=== PATIENT | female | born 1950 | race Caucasian/White ===

== ENCOUNTER 2019-07-11 04:53 | Inpatient (IN) ==
[2019-07-05 11:46] LABS: Appearance,Urine CLEAR; Bilirubin,Urine NEG (NEG); Color,Urine COLORLESS; Culture Indicated,Urine NO; Glucose,Urine (UA) NEGATIVE (NEG); Ketones,Urine NEG (NEG); Leukocyte Esterase,Urine NEG /uL (NEG); Nitrate,Urine NEG (NEG); Protein,Urine NEG (NEG); Specific Gravity,Urine 1.005 (1.000-1.035); Urine Blood NEG mg/dL (<0.03); Urobilinogen,Urine NEG (NEG)
[2019-07-05 12:00] LABS: INR 0.9 (0.9-1.1); Prothrombin Time 12.1 sec (11.9-14.5)
[2019-07-05 12:28] LABS: ALT/SGPT 60 U/l (0-40); AST/SGOT 32 U/l (0-37); Albumin 4.3 gm/dL (3.2-5.2); Albumin/Globulin Ratio 1.6 (1.0-2.3); Alkaline Phosphatase 75 U/L (39-117); Bilirubin,Total 0.3 mg/dL (0.0-1.0); Blood Urea Nitrogen 10 mg/dl (8-23); Calcium 9.6 mg/dl (8.6-10.4); Carbon Dioxide 25 mmol/L (22-30); Chloride 101 mmol/L (96-108); Globulin 2.7 gm/dL (2.2-3.7); Glomerular Filtration Rate 100; Glucose 89 mg/dL (70-105)
[2019-07-05 12:57] LABS: Basophils # (Auto) 0.06 K/mcL (0.00-0.30); Basophils % (Auto) 0.8 % (0.0-2.0); Eosinophils # (Auto) 0.17 K/mcL (0.00-0.70); Eosinophils % (Auto) 2.2 % (0.0-7.0); Granulocytes % (Auto) 66.8 % (38.0-78.0); Hematocrit 43.4 % (34.1-44.9); Hemoglobin 14.2 g/dL (11.2-15.7); Lymphocytes # (Auto) 1.67 K/mcL (1.50-4.80); Lymphocytes % (Auto) 21.7 % (15.5-49.0); Mean Cell Volume 88.4 fL (80.0-100.0); Mean Corpuscular HGB Conc 32.7 g/dL (31.0-36.0); Mean Platelet Volume 10.8 fL (7.4-10.4); Monocytes # (Auto) 0.65 K/mcL (0.10-0.90); Monocytes % (Auto) 8.5 % (1.0-12.0); Platelet Count 271 K/mcL (140-440); RBC 4.91 M/mcL (3.59-5.38); WBC 7.7 K/mcL (4.50-11.00)
[2019-07-11] MEDS ORDERED: IPRATROPIUM/ALBUTEROL 3 ML AMPUL.NEB NEB PRN ×3 (05:03→15:28)
[2019-07-11] MEDS ORDERED: ceFAZolin 2 GM in DEXTROSE 5% IN WATER 50 ML IV SCH (06:00)
[2019-07-11] MEDS ORDERED: ePHEDrine 50 MG/ML AMPUL IV ONE (08:46)
[2019-07-11] MEDS ORDERED: methylPREDNISolone SOD SUCC 125 MG/2 ML VIAL IV ONE ×2 (08:46→23:41)
[2019-07-11] MEDS ORDERED: PROPOFOL 200 MG/20 ML VIAL IV ONE (08:46)
[2019-07-11] MEDS ORDERED: TRANEXAMIC ACID 1,000 MG/10 ML VIAL IV ONE (08:46)
[2019-07-11] MEDS ORDERED: SUCCINYLCHOLINE 20 MG/ML ML IV ONE (08:46)
[2019-07-11] MEDS ORDERED: fentaNYL 250 MCG/5 ML VIAL IV ONE (08:46)
[2019-07-11] MEDS ORDERED: KETAMINE 100 MG/ML ML IV ONE (08:46)
[2019-07-11] MEDS ORDERED: ONDANSETRON 4 MG/2 ML VIAL IV ONE (08:46)
[2019-07-11] MEDS ORDERED: LIDOCAINE HCL/PF 100 MG/5 ML SYRINGE IV ONE (08:46)
[2019-07-11] MEDS ORDERED: GELATIN SPONGE,ABSORBABLE 1 EACH SPONGE TOPICAL ONE (11:27)
[2019-07-11] MEDS ORDERED: GELATIN SPONGE,ABSORBABLE 1 GM POWDER TOPICAL ONE (11:28)
[2019-07-11] MEDS ORDERED: THROMBIN (BOVINE) 5,000 UNIT VIAL TOPICAL ONE (11:30)
[2019-07-11] MEDS ORDERED: HYDROmorphone 2 MG/ML VIAL IV PRN ×2 (14:26→23:44)
[2019-07-11] MEDS ORDERED: diphenhydrAMINE 50 MG/ML VIAL IV PRN (14:26)
[2019-07-11] MEDS ORDERED: BENZOCAINE/MENTHOL 1 LOZENGE PO PRN ×2 (14:26→14:46)
[2019-07-11] MEDS ORDERED: PROMETHAZINE 25 MG/ML VIAL IV PRN ×2 (14:26→23:21)
[2019-07-11] MEDS ORDERED: FLUMAZENIL 0.1 MG/ML ML IV PRN (14:26)
[2019-07-11] MEDS ORDERED: ONDANSETRON 4 MG/2 ML VIAL IV PRN ×2 (14:26→22:27)
[2019-07-11] MEDS ORDERED: ACETAMINOPHEN 1,000 MG/100 ML BOTTLE IV ONE (14:26)
[2019-07-11] MEDS ORDERED: NALOXONE HCL 0.4 MG/ML VIAL IV PRN (14:26)
[2019-07-11] MEDS ORDERED: MEPERIDINE 25 MG/ML SYRINGE IV PRN (14:26)
[2019-07-11] MEDS ORDERED: LACTATED RINGERS 250 ML IV PRN (14:26)
[2019-07-11] MEDS ORDERED: LACTATED RINGERS 1,000 ML IV SCH ×2 (14:30→15:00)
[2019-07-11] MEDS ORDERED: VANCOMYCIN 1 GM VIAL TOPICAL ONE (14:30)
[2019-07-11] MEDS ORDERED: VANCOMYCIN 1 GM VIAL TOPICAL SCH (14:30)
--- NOTE | 2019-07-11 14:36 | XRay Report ---
HISTORY: FINDINGS: IMPRESSION: 1.7 minutes of fluoroscopy time was used. Interpreted and Authenticated by: Luiz Henry 07/11/19
[2019-07-11] MEDS ORDERED: BUPIVACAINE 0.25% 50 ML VIAL IJ ONE (14:39)
[2019-07-11] MEDS ORDERED: GUM MASTIC/STORAX/MSAL/ALCOHOL 1 DOSE DROPERETTE TOPICAL ONE (14:43)
--- NOTE | 2019-07-11 14:45 | Brief Operative Note ---
Date of procedure: 07/11/19 Pre-op diagnosis: stenosis with instability Post-op diagnosis: same Procedure: decompression and fusion Grafts/Implants: Yes (nuvasive) Anesthesia: GETA Complications: none Surgeon: Jim Montelongo Electrical Assembler: French De Los Santos Estimated blood loss (cc): 500 Specimens Removed/Pathology: none sent Condition: stable Disposition: PACU
[2019-07-11] MEDS ORDERED: HYDROmorphone PCA 30 MG/30 ML PCA.VIAL IV PRN (14:54)
--- NOTE | 2019-07-11 15:24 | Internal Medicine Consult Note ---
Medical - CN: [facility] - Data of Consult Consult date: 07/11/19 Requesting physician: Jim Montelongo Primary Care Provider: Butch Quinn - Consult Narrative Reason for consult: bronchspasm History of present illness: Ms. Watkins is a 69 year old F Who presents for elective surgical repair of lumbar spine with decompression and fusion. During the early period of anesthesia she had bronchospasms and Silvia was given Solu-Medrol. Postoperatively she is stable and saturating well on oxygen mask in PACU. There is reported history of COPD per old charts but she is not on any inhalers. Patient is currently sedated from anesthesia and unable to gather review of systems. 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) Multinodular goiter (Chronic) Syncope (Chronic) History of cardiac monitoring (Chronic) Bone spur of foot (Chronic) Osteopenia (Chronic) Stomach ulcer (Chronic) Hyperlipidemia (Chronic) Acid reflux (Chronic) Abdominal pain (Resolved) Arthritis (Resolved) Asthma (Resolved) Back problem (Resolved) Borderline blood pressure (Resolved) COPD (chronic obstructive pulmonary disease) (Resolved) Cough (Resolved) Dizziness (Resolved) Flushing (Resolved) Goiter (Resolved) Hole in the ear drum (Resolved) Hypotension (Resolved) Influenza A (Resolved) Irritable bowel (Resolved) Joint pain (Resolved) Lightheadedness (Resolved) Muscle pain (Resolved) Skin cancer (Resolved) Vision changes (Resolved) Past Surgical History (Last Reviewed 06/13/19 @ 13:46 by Butch Quinn DO) S/P cataract extraction and insertion of intraocular lens (Acute) H/O colonoscopy (Chronic) H/O shoulder surgery (Chronic) H/O tubal ligation (Chronic) H/O: (Chronic) H/O: hysterectomy (Chronic) History of back surgery (Chronic) History of bilateral salpingo-oophorectomy (Chronic) History of breast biopsy (Chronic) History of esophagogastroduodenoscopy (Chronic 06/16/06) History of implanted electronic device (Chronic 12/13/14) History of tonsillectomy and adenoidectomy (Chronic) Hx of appendectomy (Chronic) S/P herniorrhaphy (Chronic) Status post surgery (Chronic) H/O lumpectomy (Inactive) H/O oophorectomy (Inactive) Family History (Last Reviewed 06/13/19 @ 13:46 by Butch Quinn DO) Mother Arthritis Hypertension, essential Heart trouble Uterine cancer CAD (coronary artery disease) Sister Hypertension, essential Stroke Family/Other Hypertension, essential Brother MVA (motor vehicle accident) Asthma Father CAD (coronary artery disease) Grandmother Breast cancer Social History (Last Updated 06/24/19 @ 14:03 by Butch Quinn DO) Per notes patient does not smoke and drinks alcohol on holidays special occasions Unaware functional status currently. Medical - CN: Meds Home Medications Medication Instructions Recorded Confirmed Type omeprazole 40 mg capsule,delayed 40 mg PO QDAY #90 cap 08/31/17 07/11/19 Rx release meclizine 25 mg tablet 25 mg PO BID-TID PRN #30 tab 10/25/18 07/11/19 Rx diphenhydrAMINE [Benadryl] 25 mg PO DAILYP PRN 12/06/18 07/11/19 History losartan 50 mg tablet 50 mg PO QDAY 12/13/18 07/11/19 History Calcium Carb/Mag Oxide/Zinc Ox 1 cap PO DAILY 07/05/19 07/11/19 History [Piwhtbd-Kwvoqpzcs-Kghu Caplet] Ferrous Sulfate [facility] 07/05/19 07/11/19 History Iodine [Kelp] 150 mcg PO DAILY 07/05/19 07/11/19 History Docusate Sodium [Stool Softener] 100 mg PO 07/11/19 History Allergies Allergy/AdvReac Type Severity Reaction Status Date / Time hydrochlorothiazide Allergy Severe Difficulty Verified 07/11/19 05:17 Breathing ezetimibe [From Vytorin] Allergy Intermediate Weakness Verified 07/11/19 06:05 adhesive tape AdvReac Intermediate Big Sores Verified 07/05/19 10:08 Corticosteroids AdvReac Intermediate Weakness Verified 07/11/19 06:09 (Glucocorticoids) simvastatin [From Vytorin] AdvReac Intermediate Weakness Verified 07/11/19 06:05 hydrocodone AdvReac Mild Vomiting Verified 07/05/19 10:08 ondansetron AdvReac Mild Irritable Verified 07/05/19 10:08 [From Zofran (as hydrochloride)] Medical - CN: Exam - Constitutional Vitals: Temp Pulse Resp BP Pulse Ox 98.4 F 62 16 150/92 96 07/11/19 05:08 07/11/19 05:08 07/11/19 05:08 07/11/19 05:08 07/11/19 05:08 Exam: General: Sedated from anesthesia post surgery, No acute Distress, obese Eyes/N/T: PERRL Head/Neck: neck supple, normocephalic atraumatic CV: RRR, No murmurs, normal s1/s2 Pulm: mild b/l wheez, no rales Abd: soft, nontender, +BS x4 Ext: no clubbing/cyanosis/edema Neuro: Sedated from anesthesia, PERRL Skin: warm/dry Medical - CN: Result - Labs CBC & Chem 7: 07/05/19 10:40 07/05/19 10:40 Medical - CN: A/P - Narrative A/P Narrative: A: *Status post lumbar decompression fusion (07/11): *Bronchospasms preoperatively (h/o COPD on charts but not on any IH's): *?h/o COPD: but not on any IH's *Obesity: *KIRSTEN: *GERD: *HTN: on Losartan P: -prn nebs -supp o2 if needed -Corticosteroids if needed -Continuous pulse ox 24 hours -cxr -cont angela ppi -ppx: per surgery, will have at least SCD
[2019-07-11] MEDS ORDERED: hydrALAZINE 20 MG/ML VIAL IV PRN (15:28)
[2019-07-11] MEDS: fentaNYL 100 MCG/2 ML VIAL IV PRN ×2 (16:05→16:07)
--- NOTE | 2019-07-11 16:15 | XRay Report ---
HISTORY: Bronchospasm FINDINGS: Lung volumes are small due to poor inspiration. There are prominent increased interstitial lung markings bilaterally. This may be inflammation or pulmonary vascular congestion, accentuated by the poor inspiration. The heart is mildly enlarged but magnified by portable supine technique. No pleural effusion is seen. IMPRESSION: Interstitial inflammation versus pulmonary vascular congestion in both lungs Interpreted and Authenticated by: Luiz Henry 07/11/19
[2019-07-11] MEDS: HYDROmorphone 2 MG/ML VIAL IV PRN ×4 (16:54→22:15)
[2019-07-11] MEDS: ceFAZolin 1 GM VIAL IV SCH (16:55)
[2019-07-11] MEDS ORDERED: FUROSEMIDE 40 MG/4 ML VIAL IV ONE (17:09)
[2019-07-11] MEDS: 0.9 % SODIUM CHLORIDE 10 ML SYRINGE IV SCH (18:12)
[2019-07-11] MEDS ORDERED: ONDANSETRON 4 MG ODT TABLET SL PRN (22:27)
[2019-07-11] MEDS ORDERED: ONDANSETRON 4 MG/2 ML VIAL ONE (22:31)
[2019-07-11] MEDS ORDERED: 0.9 % SODIUM CHLORIDE 1,000 ML IV SCH (23:15)
[2019-07-11] MEDS ORDERED: PROCHLORPERAZINE 10 MG/2 ML VIAL IV PRN (23:21)
[2019-07-11] MEDS ORDERED: FUROSEMIDE 20 MG/2 ML VIAL IV ONE ×2 (23:35→23:36)
[2019-07-11] MEDS ORDERED: LORazepam 2 MG/ML VIAL IV PRN (23:41)
[2019-07-12] MEDS ORDERED: NALOXONE HCL 0.4 MG/ML VIAL IV ONE (00:15)
[2019-07-12] MEDS ORDERED: NALOXONE HCL 0.4 MG/ML VIAL ONE (00:19)
[2019-07-12 00:32] LABS: ALT/SGPT 51 U/l (0-40); AST/SGOT 28 U/l (0-37); Albumin 3.8 gm/dL (3.2-5.2); Albumin/Globulin Ratio 1.7 (1.0-2.3); Alkaline Phosphatase 66 U/L (39-117); Bilirubin,Total 0.2 mg/dL (0.0-1.0); Blood Urea Nitrogen 11 mg/dl (8-23); Calcium 8.5 mg/dl (8.6-10.4); Carbon Dioxide 23 mmol/L (22-30); Chloride 97 mmol/L (96-108); Globulin 2.2 gm/dL (2.2-3.7); Glomerular Filtration Rate 90; Glucose 153 mg/dL (70-105)
[2019-07-12] MEDS: ceFAZolin 1 GM VIAL IV SCH ×3 (01:06→15:37)
[2019-07-12 01:14] LABS: Basophils # (Auto) 0.02 K/mcL (0.00-0.30); Basophils % (Auto) 0.1 % (0.0-2.0); Eosinophils # (Auto) 0.18 K/mcL (0.00-0.70); Eosinophils % (Auto) 1.3 % (0.0-7.0); Granulocytes % (Auto) 84.1 % (38.0-78.0); Hematocrit 35.1 % (34.1-44.9); Hemoglobin 11.8 g/dL (11.2-15.7); Lymphocytes # (Auto) 0.95 K/mcL (1.50-4.80); Mean Cell Volume 89.1 fL (80.0-100.0); Mean Corpuscular HGB Conc 33.6 g/dL (31.0-36.0); Mean Platelet Volume 10.4 fL (7.4-10.4); Monocytes # (Auto) 1.02 K/mcL (0.10-0.90); Monocytes % (Auto) 7.5 % (1.0-12.0); Platelet Count 268 K/mcL (140-440); RBC 3.94 M/mcL (3.59-5.38); Red Cell Distribution Width 13.2 % (11.5-14.5); WBC 13.6 K/mcL (4.50-11.00)
[2019-07-12] MEDS: 0.9 % SODIUM CHLORIDE 10 ML SYRINGE IV SCH ×4 (01:35→16:34)
[2019-07-12] MEDS ORDERED: ACETAMINOPHEN 1,000 MG/100 ML BOTTLE IV ONE ×2 (05:23→05:30)
--- NOTE | 2019-07-12 07:38 | Internal Med Progress Note ---
Medical - PN: Subj Patient information: Note initiated : 07/12/19 at 7:35 am Service Date, if different from initiated Date: [] Patient: Raya Watkins a 69 y/o F admitted on 07/11/19 for L3-L4 XLIF w/ Posterior Instrumentation, Osteotomy. Chief Complaint: [] Interval history: Ms. Watkins is a 69 year old F Who presents for elective surgical repair of lumbar spine with decompression and fusion. During the early period of anesthesia she had bronchospasms and Silvia was given Solu-Medrol. Postoperatively she is stable and saturating well on oxygen mask in PACU. There is reported history of COPD per old charts but she is not on any inhalers. 07/12 Patient did desat on 4 L oxygen mask late last night this appeared to be related to the Dilaudid she seems to be pretty sensitive to it as well as little bit of volume overload. She put out good diuresis with Lasix. And we adjusted her pain medications. Patient's breathing well this morning. Denies any coughing or shortness of breath. Review of Systems: denies headache/fever/chills/nausea/vomiting/chest or abdominal pain/cough/dyspnea/diarrhea. Otherwise see above. - Constitutional Vitals: Vital Signs Temp Pulse Resp BP Pulse Ox 97.7 F 76 12 121/72 94 07/12/19 03:32 07/12/19 03:32 07/12/19 03:32 07/12/19 03:32 07/12/19 07:27 Period Temp Pulse Resp BP Sys/Koo Pulse Ox Last 24 Hr 97.4 F-99.5 F 67-79 12-22 111-147/62-84 89-100 Intake and Output 07/11/19 07/12/19 07/12/19 21:59 05:59 13:59 Intake Total 3350 41 100 Output Total 2150 830 Balance 1200 -789 100 Weight 85.049 kg Intake & Output: Intake & Output 07/11/19 07/12/19 07/12/19 21:59 05:59 13:59 Intake Total 3350 41 100 Output Total 2150 830 Balance 1200 -789 100 Weight 85.049 kg Intake: IV 100 41 100 Sodium Chloride 0.9% 1,000 ml @ 41 KVO IV .Q0M [facility] Rx#:[id number] OFIRMEV 1,000 mg In 100 ml @ 0 100 mls/hr IV .K-MED ONE Rx#: [id number] IV - Manual Only 3250 Output: Drainage 75 Lower Back 75 Drainage 5 Lower Back 5 Urine Catheter Amount 1650 750 Estimated Blood Loss 500 Other: Urine Appearance Clear Clear Uretheral (Stark) Clear Urine Color Pale Bright Yellow Uretheral (Stark) Pale Urine Odor Normal Exam: General: awake, No acute Distress, obese Eyes/N/T: EOMI Head/Neck: neck supple, normocephalic atraumatic CV: RRR, No murmurs, normal s1/s2 Pulm: no rales or wheezing Abd: soft, nontender, +BS x4 Ext: no clubbing/cyanosis, trace b/l LEedema Neuro: alert and awake Skin: warm/dry Medical - PN: Obj Da - Labs CBC & Chem 7: 07/12/19 00:35 07/11/19 23:25 Labs: Abnormal Lab Results 07/12/19 07/11/19 00:35 23:25 WBC 13.6 H Gran % 84.1 H Lymph % (Auto) 7.0 L Gran # 11.39 H Lymph # (Auto) 0.95 L [place] # (Auto) 1.02 H Glucose 153 H Calcium 8.5 L ALT 51 H Meds: Medications Acetaminophen (Tylenol) 1,000 mg PO Q6HP PRN; Protocol PRN Reason: Per Pain Protocol/Fever > 101 Albuterol/Ipratropium (Duoneb) 3 ml NEB Q4HP PRN PRN Reason: Shortness Of Breath Cefazolin Sodium (Ancef) 1 gm IV Q8H [facility]; Protocol Last Admin: 07/12/19 01:06 Dose: 1 gm Documented by: Hydralazine HCl (Apresoline) 0 mg IV Q2HP PRN PRN Reason: Hypertension Hydromorphone HCl (Dilaudid) 2 mg PO Q4HP PRN; Protocol PRN Reason: Per Pain Protocol Hydromorphone HCl (Dilaudid) 0 mg IV Q2HP PRN; Protocol PRN Reason: Per Pain Protocol Sodium Chloride (Sodium Chloride 0.9%) 1,000 mls @ 0 mls/hr IV .Q0M [facility] Last Infusion: 07/12/19 02:30 Dose: Infused Documented by: Lorazepam (Ativan) 0.5 mg IV Q4-6HP PRN PRN Reason: ANXIETY/SEDATION Ondansetron HCl (Zofran) 4 mg IV Q4HP PRN PRN Reason: Nausea And Vomiting Ondansetron HCl (Zofran Odt) 4 mg SL Q4HP PRN PRN Reason: Nausea And Vomiting Pantoprazole Sodium (Protonix) 40 mg PO QAMAC ANGELIQUE Pneumococcal Polyvalent Vaccine (Pneumovax 23) 0.5 ml IM .ONCE ONE Stop: 07/12/19 10:01 Prochlorperazine (Compazine) 5 mg IV Q4-6HP PRN PRN Reason: Nausea And Vomiting Last Admin: 07/12/19 00:05 Dose: 5 mg Documented by: Promethazine HCl (Phenergan) 25 mg IV Q4-6HP PRN PRN Reason: Nausea And Vomiting Sodium Chloride (Saline Flush) 10 ml IV Q6 ANGELIQUE Last Admin: 07/12/19 01:35 Dose: Not Given Documented by: Throat Lozenges (Cepacol) 1 lozenge PO PRN PRN PRN Reason: Sore Throat Medical - PN: A/P - Time Spent With Patient Total time spent is greater than 50% in coordination of care (as documented) at patient's floor/unit and/or counseling patient: - Narrative A/P Narrative: A: *Status post lumbar decompression fusion (07/11): *Bronchospasms Intraoperatively (h/o COPD on charts but not on any IH's): *leukocytosis from likely intraop steroids: *Volume Overload: resolved *h/o COPD: but does not tolerate IH's *Obesity: *KIRSTEN: *GERD: *HTN: on Losartan P: -prn nebs if pt able to tolerate and we can clarify what exactly she did not tolerate in past -supp o2 wean off -Corticosteroids if needed -Continuous pulse -s/p IV diuresis -cxr -cont home ppi -ppx: per surgery, will have at least SCD Medical - PN: Qual - VTE Deep Vein Thrombosis/Pulmonary Embolism Present on Admission: No
--- NOTE | 2019-07-12 07:41 | Orthopedic Progress Note ---
Subjective Patient information: Note initiated : 07/12/19 at 7:39 am Service Date, if different from initiated Date: [] Patient: Raya Watkins 69 y/o F admitted on 07/11/19 for L3-L4 XLIF w/ Posterior Instrumentation, Osteotomy. Chief Complaint: [] does have some R thigh pain difficulty with nausea over night Objective Vital signs: Vital Signs Temp Pulse Resp BP BP Pulse Ox 07/12/19 07:27 94 07/12/19 07:26 94 07/12/19 03:32 97.7 F 76 12 121/72 91 07/12/19 01:43 68 12 121/78 94 07/12/19 01:29 69 12 111/73 95 07/12/19 01:13 73 12 126/75 90 07/12/19 00:58 67 12 112/72 97 07/12/19 00:44 72 122/75 96 07/12/19 00:29 77 120/78 92 07/11/19 19:35 97.4 F 77 12 111/72 95 07/11/19 18:35 75 123/78 90 07/11/19 18:06 76 131/76 90 07/11/19 17:36 77 138/80 92 07/11/19 17:21 77 127/81 91 07/11/19 17:06 77 145/84 89 L 07/11/19 17:00 91 07/11/19 16:51 75 129/82 89 L 07/11/19 16:20 98.3 F 77 14 147/83 94 07/11/19 16:15 97.8 F 79 16 127/76 93 07/11/19 16:00 98.2 F 76 22 139/78 91 07/11/19 15:45 97.7 F 75 19 143/79 95 07/11/19 15:30 75 15 129/80 89 L 07/11/19 15:25 97.9 F 73 16 126/70 99 07/11/19 15:20 73 17 128/77 93 07/11/19 15:15 71 18 118/72 100 07/11/19 15:10 70 17 117/67 97 07/11/19 15:07 99.5 F H 75 20 123/62 98 Intake and Output 07/11/19 07/12/19 07/12/19 21:59 05:59 13:59 Intake Total 3350 41 100 Output Total 2150 830 Balance 1200 -789 100 Intake: IV 100 41 100 Sodium Chloride 0.9% 1,000 ml @ 41 KVO IV .Q0M [facility] Rx#:[id number] OFIRMEV 1,000 mg In 100 ml @ 0 100 mls/hr IV .STK-MED ONE Rx#: [id number] IV - Manual Only 3250 Output: Drainage 75 Lower Back 75 Drainage 5 Lower Back 5 Urine Catheter Amount 1650 750 Estimated Blood Loss 500 Other: Urine Appearance Clear Clear Uretheral (Stark) Clear Urine Color Pale Bright Yellow Uretheral (Stark) Pale Urine Odor Normal Weight 187 lb 8 oz Intake & Output: Intake & Output 07/11/19 07/12/19 07/12/19 21:59 05:59 13:59 Intake Total 3350 41 100 Output Total 2150 830 Balance 1200 -789 100 Weight 187 lb 8 oz Intake: IV 100 41 100 Sodium Chloride 0.9% 1,000 ml @ 41 KVO IV .Q0M [facility] Rx#:[id number] OFIRMEV 1,000 mg In 100 ml @ 0 100 mls/hr IV .STK-MED ONE Rx#: [id number] IV - Manual Only 3250 Output: Drainage 75 Lower Back 75 Drainage 5 Lower Back 5 Urine Catheter Amount 1650 750 Estimated Blood Loss 500 Other: Urine Appearance Clear Clear Uretheral (Stark) Clear Urine Color Pale Bright Yellow Uretheral (Stark) Pale Urine Odor Normal Dressing: Yes clean, Yes dry, Yes intact Weight bearing status: as tolerated Neurological exam IM: Yes neurovascular intact Extremities exam IM: Yes normal inspection - Labs CBC & BMP: 07/12/19 00:35 07/11/19 23:25 Labs: Orthopedic Labs 07/05/19 10:40 PT 12.1 INR 0.9 07/12/19 07/12/19 07/11/19 06:20 00:35 23:25 Hgb Pending 11.8 Not Reportable Hct Pending 35.1 Not Reportable 07/05/19 10:40 Hgb 14.2 Hct 43.4 Assessment and Plan (1) Lumbar adjacent segment disease with spondylolisthesis mobilize with physical therapy will try one PO dilauded for pain 2mg tab. Nursing will monitor closely Status: Acute
[2019-07-12] MEDS: HYDROmorphone 2 MG TABLET PO PRN ×3 (07:50→17:15)
[2019-07-12] MEDS: PANTOPRAZOLE 40 MG PACKET PO SCH (07:50)
[2019-07-12 07:59] LABS: Hematocrit 34.2 % (34.1-44.9); Hemoglobin 11.2 g/dL (11.2-15.7)
--- NOTE | 2019-07-12 08:10 | XRay Report ---
HISTORY: Follow-up pulmonary edema FINDINGS: There is a vertically oriented band of discoid atelectasis posteriorly and medially in the left lower lobe. A smaller band of discoid atelectasis is seen oriented vertically in the left upper lobe. Lungs are otherwise clear. The previously seen diffuse interstitial infiltrates/edema have resolved. There is chronic elevation right diaphragm. The heart size is normal and has diminished in size. IMPRESSION: Resolved congestive heart failure Residual bands of discoid atelectasis in the left upper and left lower lobes Interpreted and Authenticated by: Luiz Henry 07/12/19
--- NOTE | 2019-07-12 08:25 | Operative Note ---
DATE OF OPERATION: 07/11/2019 PREOPERATIVE DIAGNOSES: Transitional breakdown above a fusion at the L3-L4 level with stenosis and instability with a sagittal imbalance. POSTOPERATIVE DIAGNOSES: Transitional breakdown above a fusion at the L3-L4 level with stenosis and instability with a sagittal imbalance. OPERATION PROPOSED: 1. Anterior interbody fusion via lateral retroperitoneal approach L3-L4 with application of prosthetic device interbody space. 2. Posterior osteotomy L4-L5. 3. Removal of hardware L5-S1. 4. Instrumentation L3 through S1 with extension into the pelvis. This is a segmental construct. 5. Posterior/posterolateral fusion L3-L4 and L4-L5. 6. Lumbar decompression with decompressed central canal, lateral recess, and neural foramen L3-L4. OPERATION PERFORMED: 1. Anterior interbody fusion via lateral retroperitoneal approach L3-L4 with application of prosthetic device interbody space. 2. Posterior osteotomy L4-L5. 3. Removal of hardware L5-S1. 4. Instrumentation L3 through S1 with extension into the pelvis. This is a segmental construct. 5. Posterior/posterolateral fusion L3-L4 and L4-L5. 6. Lumbar decompression with decompressed central canal, lateral recess, and neural foramen L3-L4. OPERATING SURGEON: Jim Montelongo M.D. ELECTRICAL TESTER BATTERY: French De Los Santos PA-C. The PA's assistance was required for the safe and efficient completion of the entire case. This provider's expertise and technical skill were required throughout the case. The PA assisted with preoperative coordination, intraoperative retraction, wound closure, dressing and splint application, as well as postoperative documentation and care coordination. INDICATIONS: This is a lady that has had a previous instrumented fusion L5-S1. She has developed an auto-fusion at L4-L5, and this L4-L5 level is in a nonlordotic, slightly kyphotic position contributing to a sagittal imbalance. She has stenosis and instability at L3-L4. We have elected to proceed with an osteotomy of the posterior elements at L4-L5 and with an XLIF L3-L4 with posterior instrumentation L3 to the pelvis. OPERATION IN DETAIL: Informed consent was obtained. The patient was taken to the operating room where she was provided the appropriate anesthetic and prophylactic antibiotics. She was carefully positioned. Her left flank was prepped sterilely. A retroperitoneal approach to the L3-L4 interspace was performed. I advanced through the psoas musculature using an EMG-monitored trocar. I sequentially dilated. The disc space was exposed. I then incised the annulus. I passed a [place] across the disc space, freeing the contralateral annulus. I extensively curetted the disc space, debriding disc material. The disc was debrided down to subchondral bone. A 12 x 22 x 45 XLIF cage was filled with morcellized bone graft and impacted into the site prepared for it to allow for fusion. The wounds were irrigated thoroughly and closed with 0 Vicryl in interrupted fashion. I then turned the patient in the prone position. A midline incision was made. I dissected down to expose spinous process and lamina L3 through S1. We then turned laterally and exposed the L5-S1 hardware. This hardware was debrided of soft tissue. Each of the locking screws were removed. I removed the sarah from the top loading pedicle screws. The screws themselves were engaged and removed. I then performed a decompression at L3-L4. I removed the inferior portion of L3, superior portion of L4. This was done via bilateral laminotomies extending across the midline. Some of the ligamentum flavum was removed, and I debrided the hypertrophied medial border of the facet joint. At the end of the decompression, the central canal and lateral recess seemed very adequately patent. I placed pedicle screws L3 and L4, both on the right and on the left. New screws were placed L5-S1. An S2AI screw was placed across, beginning between the sacral foramen S1-S2 and angling across the SI joint. A sarah was placed into the top-loading pedicle screws. Extensive decortication was performed. I compressed across the interbody graft. Prior to placing the sarah, I had used a variety of Kerrison punches and curettes to resect roughly 5 mm osteotomy through the region of the pars interarticularis L4. This allowed for free mobility of the L4-L5 disc space. This was compressed utilizing the top loading sarah. I compressed across the interbody graft. I had irrigated thoroughly prior to placing the bone graft. I packed morcellized graft into and against the decorticated posterolateral aspect of the spine to allow for fusion. The sarah had been torqued. We closed over a deep drain with an 0 Vicryl in interrupted fashion, 2-0 Vicryl inverted deep dermal, and a running subcuticular. The procedure was tolerated well. No complications. Estimated blood loss was 500 mL. GDD:adri Job ID: [id number] Doc ID: [id number] Jim Montelongo MD
[2019-07-12 08:40] LABS: Blood Urea Nitrogen 11 mg/dl (8-23); Calcium 8.3 mg/dl (8.6-10.4); Carbon Dioxide 26 mmol/L (22-30); Chloride 98 mmol/L (96-108); Glomerular Filtration Rate 94; Glucose 125 mg/dL (70-105)
[2019-07-12] MEDS ORDERED: PNEUMOCOCCAL 23-VAL P-SAC VAC 0.5 ML SYRINGE IM ONE (10:00)
[2019-07-12] MEDS: ACETAMINOPHEN 500 MG TABLET PO PRN ×2 (12:42→18:49)
[2019-07-13] MEDS: ceFAZolin 1 GM VIAL IV SCH ×3 (00:04→16:28)
[2019-07-13] MEDS: 0.9 % SODIUM CHLORIDE 10 ML SYRINGE IV SCH ×4 (00:05→16:29)
[2019-07-13] MEDS: ACETAMINOPHEN 500 MG TABLET PO PRN ×3 (05:24→18:42)
--- NOTE | 2019-07-13 07:10 | Orthopedic Progress Note ---
Subjective Patient information: Note initiated : 07/13/19 at 7:09 am Service Date, if different from initiated Date: [] Patient: Raya Watkins 69 y/o F admitted on 07/11/19 for L3-L4 XLIF w/ Posterior Instrumentation, Osteotomy. Chief Complaint: [] continues with R leg pain but improved Objective Vital signs: Vital Signs Temp Pulse Resp BP BP Pulse Ox 07/13/19 02:54 98.5 F 73 20 132/82 92 07/12/19 23:19 97.7 F 72 16 137/82 95 07/12/19 19:04 98.5 F 83 16 123/68 95 07/12/19 16:00 97.8 F 71 18 131/78 94 07/12/19 12:00 98.0 F 77 18 105/60 94 07/12/19 08:00 97.9 F 69 18 116/69 96 07/12/19 07:45 95 07/12/19 07:27 94 07/12/19 07:26 94 Intake and Output 07/12/19 07/13/19 07/13/19 21:59 05:59 13:59 Intake Total 1600 200 Output Total 3715 315 -2114 Intake: Oral 1600 200 Output: Drainage 170 45 Lower Back 170 45 Drainage 60 45 Lower Back 60 45 Urine Catheter Amount 3485 Void Amount 225 Other: Meal Dinner Percent of Meal Consumed 75% Feeding Ability Assist with Tray Set Up Urine Appearance Clear Clear Uretheral (Stark) Clear Urine Color Pale Bright Yellow Uretheral (Stark) Pale Urine Odor Normal Normal Weight 186 lb 8 oz Intake & Output: Intake & Output 07/12/19 07/13/19 07/13/19 21:59 05:59 13:59 Intake Total 1600 200 Output Total 3715 315 Balance -2114 Weight 186 lb 8 oz Intake: Oral 1600 200 Output: Drainage 170 45 Lower Back 170 45 Drainage 60 45 Lower Back 60 45 Urine Catheter Amount 3485 Void Amount 225 Other: Meal Dinner Percent of Meal Consumed 75% Feeding Ability Assist with Tray Set Up Urine Appearance Clear Clear Uretheral (Stark) Clear Urine Color Pale Bright Yellow Uretheral (Stark) Pale Urine Odor Normal Normal Dressing: Yes clean, Yes dry Neurological exam IM: Yes motor sensory intact - Labs CBC & BMP: 07/12/19 06:20 07/12/19 06:20 Labs: Orthopedic Labs 07/05/19 10:40 PT 12.1 INR 0.9 07/13/19 07/12/19 07/12/19 05:30 06:20 00:35 Hgb Pending 11.2 11.8 Hct Pending 34.2 35.1 07/11/19 07/05/19 23:25 10:40 Hgb Not Reportable 14.2 Hct Not Reportable 43.4 Assessment and Plan (1) Lumbar adjacent segment disease with spondylolisthesis mobilize with physical therapy will try one PO dilauded for pain 2mg tab. Nursing will monitor closely will add neurontin. progressive mobilization Status: Acute
[2019-07-13] MEDS ORDERED: DEXAMETHASONE 10 MG/ML VIAL IV ONE (07:11)
[2019-07-13 07:25] LABS: Basophils # (Auto) 0.03 K/mcL (0.00-0.30); Basophils % (Auto) 0.3 % (0.0-2.0); Eosinophils # (Auto) 0.04 K/mcL (0.00-0.70); Eosinophils % (Auto) 0.4 % (0.0-7.0); Granulocytes % (Auto) 74.3 % (38.0-78.0); Hematocrit 33.9 % (34.1-44.9); Lymphocytes # (Auto) 1.65 K/mcL (1.50-4.80); Lymphocytes % (Auto) 15.3 % (15.5-49.0); Mean Cell Volume 90.6 fL (80.0-100.0); Mean Corpuscular HGB Conc 32.4 g/dL (31.0-36.0); Mean Platelet Volume 10.9 fL (7.4-10.4); Monocytes # (Auto) 1.04 K/mcL (0.10-0.90); Monocytes % (Auto) 9.7 % (1.0-12.0); Platelet Count 241 K/mcL (140-440); RBC 3.74 M/mcL (3.59-5.38); Red Cell Distribution Width 13.5 % (11.5-14.5); WBC 10.8 K/mcL (4.50-11.00)
--- NOTE | 2019-07-13 07:39 | Internal Med Progress Note ---
Medical - PN: Subj Patient information: Note initiated : 07/13/19 at 7:36 am Service Date, if different from initiated Date: [] Patient: Raya Watkins a 69 y/o F admitted on 07/11/19 for L3-L4 XLIF w/ Posterior Instrumentation, Osteotomy. Chief Complaint: [] Interval history: Ms. Watkins is a 69 year old F Who presents for elective surgical repair of lumbar spine with decompression and fusion. During the early period of anesthesia she had bronchospasms and Silvia was given Solu-Medrol. Postoperatively she is stable and saturating well on oxygen mask in PACU. There is reported history of COPD per old charts but she is not on any inhalers. 07/12 Patient did desat on 4 L oxygen mask late last night this appeared to be related to the Dilaudid she seems to be pretty sensitive to it as well as little bit of volume overload. She put out good diuresis with Lasix. And we adjusted her pain medications. Patient's breathing well this morning. Denies any coughing or shortness of breath. 07/13 Patient still feels short of breath but is requiring less oxygen, on 2 L. She is coughing yellow phlegm. She refuses breathing treatments and corticosteroids. I told her this will delay improvement. Review of Systems: denies headache/fever/chills/nausea/vomiting/chest or abdominal pain//diarrhea. Otherwise see above. - Constitutional Vitals: Vital Signs Temp Pulse Resp BP Pulse Ox 98.5 F 73 20 132/82 92 07/13/19 02:54 07/13/19 02:54 07/13/19 02:54 07/13/19 02:54 07/13/19 02:54 Period Temp Pulse Resp BP Sys/Koo Pulse Ox Last 24 Hr 97.7 F-98.5 F 69-83 16-20 105-137/60-82 92-96 Intake and Output 07/12/19 07/13/19 07/13/19 21:59 05:59 13:59 Intake Total 1600 200 Output Total 3715 315 Balance -2114 Weight 84.595 kg Intake & Output: Intake & Output 07/12/19 07/13/19 07/13/19 21:59 05:59 13:59 Intake Total 1600 200 Output Total 3715 315 Balance -2114 Weight 84.595 kg Intake: Oral 1600 200 Output: Drainage 170 45 Lower Back 170 45 Drainage 60 45 Lower Back 60 45 Urine Catheter Amount 3485 Void Amount 225 Other: Meal Dinner Percent of Meal Consumed 75% Feeding Ability Assist with Tray Set Up Urine Appearance Clear Clear Uretheral (Stark) Clear Urine Color Pale Bright Yellow Uretheral (Stark) Pale Urine Odor Normal Normal Exam: General: awake, No acute Distress, obese Eyes/N/T: EOMI Head/Neck: neck supple, normocephalic atraumatic CV: RRR, No murmurs, normal s1/s2 Pulm: left base rales, no wheezing Abd: soft, nontender, +BS x4 Ext: no clubbing/cyanosis, trace b/l LEedema Neuro: alert and awake Skin: warm/dry Medical - PN: Obj Da - Labs CBC & Chem 7: 07/13/19 05:30 07/12/19 06:20 Labs: Abnormal Lab Results 07/13/19 07/12/19 07/12/19 05:30 06:20 00:35 WBC 13.6 H Hgb 11.0 L Hct 33.9 L MPV 10.9 H Gran % 84.1 H Lymph % (Auto) 15.3 L 7.0 L Gran # 8.01 H 11.39 H Lymph # (Auto) 0.95 L [place] # (Auto) 1.04 H 1.02 H Glucose 125 H Calcium 8.3 L ALT 07/11/19 23:25 WBC Hgb Hct MPV Gran % Lymph % (Auto) Gran # Lymph # (Auto) [place] # (Auto) Glucose 153 H Calcium 8.5 L ALT 51 H Meds: Medications Acetaminophen (Tylenol) 1,000 mg PO Q6HP PRN; Protocol PRN Reason: Per Pain Protocol/Fever > 101 Last Admin: 07/13/19 05:24 Dose: 1,000 mg Documented by: Albuterol/Ipratropium (Duoneb) 3 ml NEB Q4HP PRN PRN Reason: Shortness Of Breath Cefazolin Sodium (Ancef) 1 gm IV Q8H ANGELIQUE; Protocol Last Admin: 07/13/19 00:04 Dose: 1 gm Documented by: Gabapentin (Neurontin) 100 mg PO Q8 ANGELIQUE Hydralazine HCl (Apresoline) 0 mg IV Q2HP PRN PRN Reason: Hypertension Hydromorphone HCl (Dilaudid) 2 mg PO Q4HP PRN; Protocol PRN Reason: Per Pain Protocol Last Admin: 07/12/19 17:15 Dose: 2 mg Documented by: Hydromorphone HCl (Dilaudid) 0 mg IV Q2HP PRN; Protocol PRN Reason: Per Pain Protocol Sodium Chloride (Sodium Chloride 0.9%) 1,000 mls @ 0 mls/hr IV .Q0M [facility] Last Infusion: 07/12/19 02:30 Dose: Infused Documented by: Lorazepam (Ativan) 0.5 mg IV Q4-6HP PRN PRN Reason: ANXIETY/SEDATION Ondansetron HCl (Zofran) 4 mg IV Q4HP PRN PRN Reason: Nausea And Vomiting Ondansetron HCl (Zofran Odt) 4 mg SL Q4HP PRN PRN Reason: Nausea And Vomiting Pantoprazole Sodium (Protonix) 40 mg PO QAMAC [facility] Last Admin: 07/12/19 07:50 Dose: 40 mg Documented by: Prochlorperazine (Compazine) 5 mg IV Q4-6HP PRN PRN Reason: Nausea And Vomiting Last Admin: 07/12/19 00:05 Dose: 5 mg Documented by: Promethazine HCl (Phenergan) 25 mg IV Q4-6HP PRN PRN Reason: Nausea And Vomiting Sodium Chloride (Saline Flush) 10 ml IV Q6 [facility] Last Admin: 07/13/19 05:18 Dose: Not Given Documented by: Throat Lozenges (Cepacol) 1 lozenge PO PRN PRN PRN Reason: Sore Throat Medical - PN: A/P - Time Spent With Patient Total time spent is greater than 50% in coordination of care (as documented) at patient's floor/unit and/or counseling patient: - Narrative A/P Narrative: A: *Status post lumbar decompression fusion (07/11): *Bronchospasms Intraoperatively (h/o COPD on charts but not on any IH's): *Hypoxia: 2/2 above + some pulm edema with good diuresis yesterday *leukocytosis from likely intraop steroids: *Volume Overload: resolved *h/o COPD: but does not tolerate IH's *Obesity: *KIRSTEN: *GERD: *HTN: on Losartan P: -prn nebs if pt able to tolerate and we can clarify what exactly she did not tolerate in past -supp o2 wean off -IS for atelectasis -pt refuses Corticosteroids as well -Continuous pulse -IV diuresis today -cont home ppi -ppx: per surgery, will have at least SCD Medical - PN: Qual - VTE Deep Vein Thrombosis/Pulmonary Embolism Present on Admission: No
[2019-07-13] MEDS: PANTOPRAZOLE 40 MG PACKET PO SCH (07:51)
[2019-07-13] MEDS ORDERED: BUMETANIDE 0.25 MG/ML VIAL IV ONE (08:04)
[2019-07-13] MEDS ORDERED: SENNOSIDES 1 TABLET PO ONE (08:05)
[2019-07-13] MEDS ORDERED: SENNOSIDES 1 TABLET PO PRN (08:05)
[2019-07-13] MEDS ORDERED: POLYETHYLENE GLYCOL 3350 17 GM PACKET PO PRN (08:05)
[2019-07-13] MEDS: DOCUSATE SODIUM 100 MG CAPSULE PO SCH ×2 (09:00→21:21)
[2019-07-13] MEDS: POLYETHYLENE GLYCOL 3350 17 GM PACKET PO SCH (09:00)
[2019-07-13] MEDS: GABAPENTIN 100 MG CAPSULE PO SCH ×2 (14:22→21:20)
[2019-07-14] MEDS: ceFAZolin 1 GM VIAL IV SCH ×2 (00:15→07:42)
[2019-07-14] MEDS: 0.9 % SODIUM CHLORIDE 10 ML SYRINGE IV SCH ×2 (00:15→06:00)
[2019-07-14] MEDS: ACETAMINOPHEN 500 MG TABLET PO PRN (05:43)
[2019-07-14] MEDS: GABAPENTIN 100 MG CAPSULE PO SCH (05:46)
[2019-07-14 06:37] LABS: Hematocrit 30.7 % (34.1-44.9)
--- NOTE | 2019-07-14 07:22 | Orthopedic Progress Note ---
Subjective Patient information: Note initiated : 07/14/19 at 7:20 am Service Date, if different from initiated Date: [] Patient: Raya Watkins 69 y/o F admitted on 07/11/19 for L3-L4 XLIF w/ Posterior Instrumentation, Osteotomy. Chief Complaint: [S/P L3-4 XLIF WITH POSTERIOR INSTRUMENTED FUSION L3-PELVIS] Ms. Watkins is doing well and has been ambulating. Her main complaint is constipation. She denies any new onset lower extremity paresthesias/weakness. Principal diagnosis: Lumbar stenosis Objective Vital signs: Vital Signs Temp Pulse Resp BP Pulse Ox 07/14/19 04:00 98.3 F 65 22 130/78 97 07/14/19 00:06 98.1 F 64 20 116/75 95 07/13/19 19:28 98.1 F 85 24 H 135/82 94 07/13/19 16:00 98.0 F 73 18 138/81 93 07/13/19 12:00 98.3 F 72 20 135/79 92 07/13/19 08:00 74 20 92 07/13/19 07:58 98.1 F 70 20 132/81 92 Intake and Output 07/13/19 07/14/19 07/14/19 21:59 05:59 13:59 Intake Total 800 Output Total 900 1150 Balance -900 -350 Intake: Oral 800 Output: Void Amount 900 1150 Other: Meal Dinner Percent of Meal Consumed 50% Urine Appearance Clear Clear Urine Color Bright Yellow Pale Urine Odor Normal Normal Stool Size Small Stool Color Brown Stool Consistency Stephanie # Bowel Movements 1 Weight 184 lb 8 oz Intake & Output: Intake & Output 07/13/19 07/14/19 07/14/19 21:59 05:59 13:59 Intake Total 800 Output Total 900 1150 Balance -900 -350 Weight 184 lb 8 oz Intake: Oral 800 Output: Void Amount 900 1150 Other: Meal Dinner Percent of Meal Consumed 50% Urine Appearance Clear Clear Urine Color Bright Yellow Pale Urine Odor Normal Normal Stool Size Small Stool Color Brown Stool Consistency Stephanie # Bowel Movements 1 Incision: Yes healing, Yes clean and dry Incision clean and dry: Yes Dressing: Yes clean, Yes dry, Yes intact Weight bearing status: as tolerated Neurological exam IM: Yes alert, Yes oriented X3, Yes motor sensory intact, Yes neurovascular intact Extremities exam IM: Yes calf tenderness (negative bilat), Yes normal inspection, Yes Camila's sign (negative bilat), Yes neurovascular intact - Labs CBC & BMP: 07/14/19 05:25 07/12/19 06:20 Labs: Orthopedic Labs 07/05/19 10:40 PT 12.1 INR 0.9 07/14/19 07/13/19 07/12/19 05:25 05:30 06:20 Hgb 10.0 L 11.0 L 11.2 Hct 30.7 L 33.9 L 34.2 07/12/19 07/11/19 07/05/19 00:35 23:25 10:40 Hgb 11.8 Not Reportable 14.2 Hct 35.1 Not Reportable 43.4 Assessment and Plan (1) Lumbar adjacent segment disease with spondylolisthesis Continue laxatives and ambulation to resolve constipation. Discharge to [facility] today. Verbal discharge instructions were discussed with the patient. Follow-up with [facility] in 2 weeks. Status: Acute
[2019-07-14] MEDS: PANTOPRAZOLE 40 MG PACKET PO SCH (07:41)
[2019-07-14] MEDS: POLYETHYLENE GLYCOL 3350 17 GM PACKET PO SCH (09:23)
[2019-07-14] MEDS: DOCUSATE SODIUM 100 MG CAPSULE PO SCH (09:23)
[2019-07-14] MEDS ORDERED: MINERAL OIL 1 DOSE ENEMA PR ONE (09:30)
--- NOTE | 2019-07-14 09:34 | Discharge Summary ---
Providers - Providers Patient information: Note initiated : 07/14/19 at 9:32 am Service Date, if different from initiated Date: [] Patient: Raya Watkins 69 y/o F admitted on 07/11/19 for L3-L4 XLIF w/ Posterior Instrumentation, Osteotomy. Chief Complaint: [] Date of admission: 07/11/19 Discharge date: 07/14/19 Attending physician: Jim Montelongo None Hospitalization Hospital Course: Postoperatively, the patient was returned to the [facility]. She was provided routine pain management and maintained on prophylactic antibiotics. At the time of discharge she is doing well and tolerating all medications well. She is discharged to follow up with me in approximately 2 weeks. She will call with any questions or concerns whatsoever. Discharge diagnosis: lumbar stenosis with instability Reason for admission: lumbar stenosis with instability Procedures: L3-4 XLIF with posterior instrumentation L3-pelvis Complications: None Exam - Exam Incision healing: Yes Incision draining: No Incision red: No Incision swollen: No Incision inflamed: No Clean and dry: Yes Weight bearing status: as tolerated Ortho Discharge - Spine - Patient Instructions Discharge Diet: Regular Diet Activity: ambulate with assistive device Spine Protocol: Limit bending and stooping. No heavy lifting. Wear brace/collar at all times except when showering and sleeping. Dressing Care: Other (may remove dressing prior to showering and replace with dry dressing after showers) Additional Dressing Instructions: May Shower 48 hours post-operative and replace with dry dressing after shower. Patient Education: Lumbar Spinal Fusion (DC) Additional Instructions: No twisting, stooping. No heavy lifting. Wear brace while up. May Shower. Replace dressing with a dry dressing after shower. - Problem Maintenance (1) Lumbar adjacent segment disease with spondylolisthesis Status: Acute - Follow Up Plan Follow Up Appointments: French De Los Santos PA-C [[facility]] - 07/28/19 8:20 am Disposition: er SNF Care Plan Goals: This discharge packet is provided to you to help keep you informed about your care. We want to ensure you get everything you need when you go home. You will also be receiving a call from us in a few days to follow up with you and see how you are doing since your discharge. This gives us a chance to listen to any concerns you maybe experiencing since you were discharged or any additional needs you may have, as well as providing us feedback on your care experience. We strive to always provide excellent care and thank you for your feedback and for choosing [facility]. Prognosis: Fair Rehab Potential: Fair I certify that the patient requires SNF services: Yes Overall status at discharge: patient is progressing back to baseline - Orders For Discharge Prescriptions: HYDROmorphone HCL [Dilaudid] 2 mg PO Q4-6HP PRN #50 tab PRN Reason: Pain Prescription Printed Methocarbamol [Robaxin-750] 750 mg PO Q8HP PRN #40 tab PRN Reason: Muscle Spasm Prescription Printed Pending Studies Resuscitation Status Full Code Diet Regular Diet Start ThuJul 11 Dinner Acetaminophen (Tylenol) 1,000 mg PO Q6HP PRN; Protocol PRN Reason: Per Pain Protocol/Fever > 101 Last Admin: 07/14/19 05:43 Dose: 1,000 mg Documented by: Admin: 07/13/19 18:42 Dose: 1,000 mg Documented by: ASMDiane Admin: 07/13/19 11:49 Dose: 1,000 mg Documented by: Admin: 07/13/19 05:24 Dose: 1,000 mg Documented by: Admin: 07/12/19 18:49 Dose: 1,000 mg Documented by: Admin: 07/12/19 12:42 Dose: 1,000 mg Documented by: MIR Cefazolin Sodium (Ancef) 1 gm IV Q8H ANGELIQUE; Protocol Last Admin: 07/14/19 07:42 Dose: 1 gm Documented by: ASMDiane Admin: 07/14/19 00:15 Dose: 1 gm Documented by: Admin: 07/13/19 16:28 Dose: 1 gm Documented by: Admin: 07/13/19 09:00 Dose: 1 gm Documented by: Admin: 07/13/19 00:04 Dose: 1 gm Documented by: Admin: 07/12/19 15:37 Dose: 1 gm Documented by: [email or web address] Admin: 07/12/19 07:51 Dose: 1 gm Documented by: Admin: 07/12/19 01:06 Dose: 1 gm Documented by: Admin: 07/11/19 16:55 Dose: 1 gm Documented by: SORAYA Docusate Sodium (Colace) 100 mg PO BID [facility] Last Admin: 07/14/19 09:23 Dose: 100 mg Documented by: Admin: 07/13/19 21:21 Dose: 100 mg Documented by: Admin: 07/13/19 09:00 Dose: 100 mg Documented by: ASTRID Gabapentin (Neurontin) 100 mg PO Q8 [facility] Last Admin: 07/14/19 05:46 Dose: 100 mg Documented by: Admin: 07/13/19 21:20 Dose: 100 mg Documented by: Admin: 07/13/19 14:22 Dose: 100 mg Documented by: ASTRID Hydromorphone HCl (Dilaudid) 2 mg PO Q4HP PRN; Protocol PRN Reason: Per Pain Protocol Last Admin: 07/12/19 17:15 Dose: 2 mg Documented by: [email or web address] Admin: 07/12/19 12:42 Dose: 2 mg Documented by: Admin: 07/12/19 07:50 Dose: 2 mg Documented by: MIR Sodium Chloride (Sodium Chloride 0.9%) 1,000 mls @ 0 mls/hr IV .Q0M [facility] Last Infusion: 07/12/19 02:30 Dose: 0 mls/hr Documented by: Admin: 07/12/19 00:26 Dose: 20 mls/hr Documented by: JOHANNA Pantoprazole Sodium (Protonix) 40 mg PO QAMAC [facility] Last Admin: 07/14/19 07:41 Dose: 40 mg Documented by: Admin: 07/13/19 07:51 Dose: 40 mg Documented by: Admin: 07/12/19 07:50 Dose: 40 mg Documented by: MIR Polyethylene Glycol (Miralax) 17 gm PO DAILY [facility] Last Admin: 07/14/19 09:23 Dose: 17 gm Documented by: Admin: 07/13/19 09:00 Dose: 17 gm Documented by: ASTRID Prochlorperazine (Compazine) 5 mg IV Q4-6HP PRN PRN Reason: Nausea And Vomiting Last Admin: 07/12/19 00:05 Dose: 5 mg Documented by: JOHANNA Senna (Senokot) 2 tab PO DAILYP PRN PRN Reason: Constipation Last Admin: 07/14/19 09:23 Dose: 2 tab Documented by: ASTRID Sodium Chloride (Saline Flush) 10 ml IV Q6 ANGELIQUE Last Admin: 07/14/19 06:00 Dose: Not Given Documented by: Admin: 07/14/19 00:15 Dose: 10 ml Documented by: Admin: 07/13/19 16:29 Dose: 10 ml Documented by: Admin: 07/13/19 11:49 Dose: 10 ml Documented by: Admin: 07/13/19 05:18 Dose: Not Given Documented by: Admin: 07/13/19 00:05 Dose: 10 ml Documented by: Admin: 07/12/19 16:34 Dose: Not Given Documented by: [email or web address] Admin: 07/12/19 12:44 Dose: 10 ml Documented by: Admin: 07/12/19 07:51 Dose: 10 ml Documented by: Admin: 07/12/19 01:35 Dose: Not Given Documented by: Admin: 07/11/19 18:12 Dose: Not Given Documented by: [email or web address] Shift Summary 07/14/19 04:00 Shift Summary by Mariel Mcfarlane The patient is alert and oriented times four, up to ambulate in the halls with a FWW/brace and SBA with a steady gait and transfers to BSC with minimal assist for voiding. Small hard formed BM once this shift and passing copious amounts of flatus, reports ''feeling better'. She was medicated once with APAP for c/o back and hip pain, dressing to her lower back CDI, VSS, using her I/S and acapella well and on 2 LPM N/C to maintain Sp02 >90% while asleep d/t history of COPD. night monitor in place showing NSR with occasional trigeminy. Plan is to discharge to [facility] today for rehab and the patient is aware and pleased with this. Will update at bedside. Initialized on 07/14/19 04:00 - END OF NOTE
--- NOTE | 2019-07-14 09:52 | Internal Med Progress Note ---
Medical - PN: Subj Patient information: Note initiated : 07/14/19 at 9:50 am Service Date, if different from initiated Date: [] Patient: Raya Watkins a 69 y/o F admitted on 07/11/19 for L3-L4 XLIF w/ Posterior Instrumentation, Osteotomy. Chief Complaint: [] Interval history: Ms. Watkins is a 69 year old F Who presents for elective surgical repair of lumbar spine with decompression and fusion. During the early period of anesthesia she had bronchospasms and Silvia was given Solu-Medrol. Postoperatively she is stable and saturating well on oxygen mask in PACU. There is reported history of COPD per old charts but she is not on any inhalers. 07/12 Patient did desat on 4 L oxygen mask late last night this appeared to be related to the Dilaudid she seems to be pretty sensitive to it as well as little bit of volume overload. She put out good diuresis with Lasix. And we adjusted her pain medications. Patient's breathing well this morning. Denies any coughing or shortness of breath. 07/13 Patient still feels short of breath but is requiring less oxygen, on 2 L. She is coughing yellow phlegm. She refuses breathing treatments and corticosteroids. I told her this will delay improvement. 07/14 Patient was having constipation otherwise her hypoxia improved patient does not want any nebulizer treatment or inhalers prescribed. She probably has obstructive airway disease and atelectasis. Patient refused any treatments patient refused any steroids. We ordered an enema for her constipation and she can be discharged after having bowel movements. Pertinent ROS: Respiratory no shortness of breath no hypoxia she is on room air Cardiovascular-no chest pain no palpitation no dizziness Abdomen-constipated no tenderness, bowel sounds diminished Neuro-no focal neuro deficit Psychiatric no anxiety cooperative - Constitutional Vitals: Vital Signs Temp Pulse Resp BP Pulse Ox 97.6 F 71 22 126/84 94 07/14/19 08:00 07/14/19 08:00 07/14/19 08:00 07/14/19 08:00 07/14/19 08:11 Period Temp Pulse Resp BP Sys/Koo Pulse Ox Last 24 Hr 97.6 F-98.3 F 64-85 18-24 116-138/75-84 92-97 Intake and Output 07/13/19 07/14/19 07/14/19 21:59 05:59 13:59 Intake Total 800 Output Total 900 1150 Balance -900 -350 Weight 184 lb 8 oz Intake & Output: Intake & Output 07/13/19 07/14/19 07/14/19 21:59 05:59 13:59 Intake Total 800 Output Total 900 1150 Balance -900 -350 Weight 184 lb 8 oz Intake: Oral 800 Output: Void Amount 900 1150 Other: Meal Dinner Percent of Meal Consumed 50% Urine Appearance Clear Clear Clear Urine Color Bright Yellow Pale Bright Yellow Urine Odor Normal Normal Normal Stool Size Small Small Stool Color Brown Brown Stool Consistency Stephanie Stephanie # Bowel Movements 1 General appearance: cooperative, obese, no severe distress - Head Head exam: Present: atraumatic, normal inspection, normocephalic - Eye Eye exam: Present: normal appearance. Absent: conjunctival injection, nystagmus, periorbital swelling - ENT ENT exam: Present: mucous membranes moist, normal exam, normal external ear exam - Respiratory Respiratory exam: Present: decreased breath sounds, wheezes. Absent: accessory muscle use - Cardiovascular Cardiovascular exam: Present: normal rate and rhythm. Absent: systolic murmur - GI/Abdominal GI/Abdominal exam: Present: diminished bowel sounds, distended. Absent: rebound, tenderness - Neurological Exam Neurological exam: Present: alert, oriented X3. Absent: motor sensory deficit - Psychiatric Psychiatric exam: Absent: anxious, depressed Medical - PN: Obj Da - Labs CBC & Chem 7: 07/14/19 05:25 07/12/19 06:20 Labs: Abnormal Lab Results 07/14/19 07/13/19 07/12/19 05:25 05:30 06:20 WBC Hgb 10.0 L 11.0 L Hct 30.7 L 33.9 L MPV 10.9 H Gran % Lymph % (Auto) 15.3 L Gran # 8.01 H Lymph # (Auto) [place] # (Auto) 1.04 H Glucose 125 H Calcium 8.3 L ALT 07/12/19 07/11/19 00:35 23:25 WBC 13.6 H Hgb Hct MPV Gran % 84.1 H Lymph % (Auto) 7.0 L Gran # 11.39 H Lymph # (Auto) 0.95 L [place] # (Auto) 1.02 H Glucose 153 H Calcium 8.5 L ALT 51 H Meds: Medications Acetaminophen (Tylenol) 1,000 mg PO Q6HP PRN; Protocol PRN Reason: Per Pain Protocol/Fever > 101 Last Admin: 07/14/19 05:43 Dose: 1,000 mg Documented by: Albuterol/Ipratropium (Duoneb) 3 ml NEB Q4HP PRN PRN Reason: Shortness Of Breath Cefazolin Sodium (Ancef) 1 gm IV Q8H [facility]; Protocol Last Admin: 07/14/19 07:42 Dose: 1 gm Documented by: Docusate Sodium (Colace) 100 mg PO BID [facility] Last Admin: 07/14/19 09:23 Dose: 100 mg Documented by: Gabapentin (Neurontin) 100 mg PO Q8 [facility] Last Admin: 07/14/19 05:46 Dose: 100 mg Documented by: Hydralazine HCl (Apresoline) 0 mg IV Q2HP PRN PRN Reason: Hypertension Hydromorphone HCl (Dilaudid) 2 mg PO Q4HP PRN; Protocol PRN Reason: Per Pain Protocol Last Admin: 07/12/19 17:15 Dose: 2 mg Documented by: Hydromorphone HCl (Dilaudid) 0 mg IV Q2HP PRN; Protocol PRN Reason: Per Pain Protocol Sodium Chloride (Sodium Chloride 0.9%) 1,000 mls @ 0 mls/hr IV .Q0M [facility] Last Infusion: 07/12/19 02:30 Dose: Infused Documented by: Lorazepam (Ativan) 0.5 mg IV Q4-6HP PRN PRN Reason: ANXIETY/SEDATION Ondansetron HCl (Zofran) 4 mg IV Q4HP PRN PRN Reason: Nausea And Vomiting Ondansetron HCl (Zofran Odt) 4 mg SL Q4HP PRN PRN Reason: Nausea And Vomiting Pantoprazole Sodium (Protonix) 40 mg PO QAMAC [facility] Last Admin: 07/14/19 07:41 Dose: 40 mg Documented by: Polyethylene Glycol (Miralax) 17 gm PO DAILYP PRN PRN Reason: Constipation Polyethylene Glycol (Miralax) 17 gm PO DAILY [facility] Last Admin: 07/14/19 09:23 Dose: 17 gm Documented by: Prochlorperazine (Compazine) 5 mg IV Q4-6HP PRN PRN Reason: Nausea And Vomiting Last Admin: 07/12/19 00:05 Dose: 5 mg Documented by: Promethazine HCl (Phenergan) 25 mg IV Q4-6HP PRN PRN Reason: Nausea And Vomiting Senna (Senokot) 2 tab PO DAILYP PRN PRN Reason: Constipation Last Admin: 07/14/19 09:23 Dose: 2 tab Documented by: Sodium Chloride (Saline Flush) 10 ml IV Q6 ANGELIQUE Last Admin: 07/14/19 06:00 Dose: Not Given Documented by: Throat Lozenges (Cepacol) 1 lozenge PO PRN PRN PRN Reason: Sore Throat Medical - PN: A/P - Time Spent With Patient Total time spent is greater than 50% in coordination of care (as documented) at patient's floor/unit and/or counseling patient: - Narrative A/P Narrative: Status post lumbar fusion 07/11 Plan is to discharge her today rehab facility Pain management per orthopedic surgeon Hypoxic respiratory failure Probable obstructive airway disease Patient refused any active treatments Her oxygenation improved Strongly encouraged her to discuss with the primary care physician and get a PFT study Constipation probably due to pain medicine Ordered an enema Ordered stool softeners Patient can be discharged from medical standpoint needs to follow-up with the primary care provider Medical - PN: Qual - VTE Deep Vein Thrombosis/Pulmonary Embolism Present on Admission: No
== END 2019-07-14 12:00 | DRG 454 ==
LOC: MEDSUR 04:53
PROVIDERS: ADMIT Orthopaedic Surgery Orthopaedic Surgery of the Spine; ATTEND Orthopaedic Surgery Orthopaedic Surgery of the Spine